=== PATIENT | female | born 1995 | race Caucasian/White ===

== ENCOUNTER → 2017-01-29 09:06 | Outpatient (CLI) | payer SELFPAY, MEDICAID | END | disposition home or self-care (01) | LOC: D.US 09:06 | DX: R10.9 Unspecified abdominal pain (principal) ==

== ENCOUNTER 2019-09-23 06:00 | Day surgery (SDC) | payer OTHER ==
[2019-09-21 10:04] LABS: BASOPHILS 0.2 % (0-2); EOSINOPHILS 0.4 % (0-7); IMMATURE GRANULOCYTES 0.3 % (0-5); MCH 30.9 pg (26.0-34.0); MCHC 34.9 g/dL (31.0-37.0); MCV 88.7 fL (80.0-100.0); MEAN PLATELET VOLUME 9.5 fL (7.4-10.4); MONOCYTES 4.6 % (2-11); NEUTROPHILS 78.5 % (40-80); PLATELET COUNT 372 10x3/uL (130-400); RBC 4.85 10x6/uL (4.00-5.40); RDW 13.1 % (11.5-14.5); WBC 11.1 10x3/uL (4.8-10.8)
[2019-09-21 10:12] LABS: ANION GAP 12.3 mmol/L (8-16); CALCIUM 9.4 mg/dL (8.5-10.1); CARBON DIOXIDE 25.9 mmol/L (21.0-32.0); POTASSIUM - SERUM 4.2 mmol/L (3.5-5.1)
[~2019-09-23] VITALS: Ht 165.1 cm; Wt 85.3 kg
[2019-09-23 08:52] VITALS: BP 118/83; Ht 165.1 cm; Wt 85.3 kg
[2019-09-23 09:01] LABS: HCG URINE NEGATIVE (NEGATIVE)
[2019-09-23] MEDS ORDERED: HYDROCODON-ACE1 EA10 PO (11:00)
--- NOTE | 2019-09-23 15:22 | NUR ---
1240 IV D/'C'D WITH CANNULA INTACT DISCHARGE INSTRUCTIONS GIVEN. PT AND MOTHER VERBALIZED AN UNDERSTANDING. NO C/O
--- NOTE | 2019-09-25 09:28 | OP ---
PATIENT NAME: ANTONELLA RITCHIE MEDICAL RECORD: [id number] :94 LOCATION:D.OPS ADMISSION DATE: SURGEON: ANTHONY MENDEZ MD DATE OF OPERATION: 09/23/2019 PREOPERATIVE DIAGNOSIS: Biliary dyskinesia. POSTOPERATIVE DIAGNOSIS: Biliary dyskinesia. PROCEDURE: Laparoscopic cholecystectomy. SURGEON: Anthony Mendez MD REPORT OF PROCEDURE: The patient's abdomen was prepped and draped in sterile fashion. A cutdown was made on the superior aspect of the umbilicus, 0 Vicryls were placed in the fascia bilaterally and the fascia was incised with 15-blade. I then bluntly entered the peritoneal cavity and placed a 12-mm Forrest port. Under direct visualization, a 5 mm trocar was placed in the epigastrium and 2 more 5-mm trocars were placed in right subcostal region. The gallbladder was grasped and elevated. The cystic artery and cystic duct were dissected free and these were clipped proximally and distally and ligated in standard fashion. The gallbladder was taken off the liver bed using electrocautery and placed into an Endo Catch bag. The right upper quadrant was then irrigated out and care was taken to assure there is no sign of any bleeding or bile leakage. The ports and insufflation were then removed and the gallbladder was taken out through the umbilicus. The umbilical fascia was closed with interrupted 0 Vicryls times 3. The wounds were then irrigated out with normal saline and infused with 10 mL of 0.25% Marcaine with epinephrine. Skin incisions were all closed with subcutaneous 5-0 Monocryl and dressed appropriately. COMPLICATIONS: None. CONDITION: Stable. ANESTHESIA: General endotracheal and local. BLOOD LOSS: Minimal. TRANSINT:[id number] Voice Confirmation ID: [id number] DOCUMENT ID: [id number] ANTHONY MENDEZ MD at 0928 CC: TEENA ARENAS MD [id number] DICTATION DATE: 09/23/19 1103 BACK TACKER: 09/23/195 [facility] 09/23/19 [id number] [place] [address]
== END 2019-09-23 12:50 | disposition home or self-care (01) ==
LOC: D.OPS 06:00 → D.PAN 11:15 → D.OPS 11:15
PROVIDERS: ATTEND Surgery
DX: K82.8 Other specified diseases of gallbladder (principal)